=== PATIENT | male | born 1955 | race Caucasian/White ===

== ENCOUNTER 2019-07-31 09:46 | Emergency (ER) | payer OTHER ==
--- NOTE | 2019-07-31 10:18 | ERPHSYRPT ---
- History of Present Illness Time Seen by Provider: 07/31/19 10:15 Patient Subjective Stated Complaint: PT REPORTS VOMITING FOR 3 DAYS, UNABLE TO EAT OR DRINK. DENIEIS DIARRHEA OR BLOODY EMESIS OR STOOL. Triage Nursing Assessment: ABLET TO AMBULATE TO ROOM. ALERT AND ORIENTED. PT HOLDING CONTAINER FOR VOMIT, DRY HEIVING AT TIMES. REDDENED DRY RASH SCATTERED GENERALIZED ON BODY, PT STATES CHRONIC D/T NERVES. PT TEARFUL, STATES QUIT TAKING ANTI-DEPRESSANT A FEW MONTHS AGO. PT LIVES WITH SON, AND THEY DO NOT AGREE. PT REPORTS PAIN IN LOWER RIGHT QUAD, TENDER TO TOUCH. PAIN 8/10, CONSTANT. Physician History: 63 y/o white male with h/o gerdz and niddm, presents with constipation for 4 days, as well as vomiting and rlq abd pain both for 3 days. pt has had an appendectomy in the past Timing/Duration: day(s) (3 to 4 ) Activities at Onset: none Quality: sharpness, stabbing Abdominal Pain Onset Location: RLQ Pain Radiation: no radiation Severity of Pain-Max: moderate Severity of Pain-Current: moderate Modifying Factors: Improves With: vomiting Associated Symptoms: nausea, vomiting Previous symptoms: no prior history Allergies/Adverse Reactions: iodine [Iodine] Allergy (Verified 05/27/12 06:27) Sulfa (Sulfonamide Antibiotics) [Sulfa(Sulfonamide Antibiotics)] Allergy ( Verified 05/27/12 06:27) Home Medications: Metformin HCl 1000 mg [Glucophage 1000 MG] 1,000 mg PO DAILY 03/22/16 [History] Omeprazole 40 mg PO DAILY 03/22/16 [History] Empagliflozin [Jardiance] 10 mg PO DAILY 07/31/19 [History] Hx Tetanus, Diphtheria Vaccination/Date Given: No Hx Influenza Vaccination/Date Given: Yes (PT UNSURE OF DATES) Hx Pneumococcal Vaccination/Date Given: No - Review of Systems Constitutional: No Symptoms Eyes: No Symptoms Ears, Nose, & Throat: No Symptoms Respiratory: No Symptoms Cardiac: No Symptoms Abdominal/Gastrointestinal: Abdominal Pain, Nausea, Vomiting, Constipation Genitourinary Symptoms: No Symptoms Musculoskeletal: No Symptoms Skin: No Symptoms Neurological: No Symptoms Psychological: No Symptoms Endocrine: No Symptoms Hematologic/Lymphatic: No Symptoms Immunological/Allergic: No Symptoms All Other Systems: Reviewed and Negative - Past Medical History Pertinent Past Medical History: Yes Neurological History: No Pertinent History ENT History: No Pertinent History Cardiac History: No Pertinent History Respiratory History: No Pertinent History Endocrine Medical History: Diabetes Type II Musculoskeletal History: No Pertinent History GI Medical History: GERD History: No Pertinent History Psycho-Social History: Depression Male Reproductive Disorders: No Pertinent History Other Medical History: KIDNEY STONE - Past Surgical History Past Surgical History: Yes Neuro Surgical History: No Pertinent History Cardiac: No Pertinent History Respiratory: No Pertinent History Gastrointestinal: Appendectomy, Cholecystectomy, Hernia Repair Genitourinary: Other Musculoskeletal: No Pertinent History Other Surgical History: KIDNEY STONES [id number] - Social History Smoking Status: Former smoker How long have you smoked: 30 YEARS + Exposure to second hand smoke: Yes Drug Use: none Patient Lives Alone: No (WITH SON) - Nursing Vital Signs Nursing Vital Signs: Initial Vital Signs Temperature 99.4 F 07/31/19 09:57 Pulse Rate 91 H 07/31/19 09:57 Respiratory Rate 20 07/31/19 09:57 Blood Pressure 138/92 07/31/19 09:57 O2 Sat by Pulse Oximetry 100 07/31/19 09:57 Pain Scale Pain Intensity 9 - Physical Exam General Appearance: mild distress, alert, anxiety Eye Exam: PERRL/EOMI, eyes nml inspection Ears, Nose, Throat Exam: normal ENT inspection, moist mucous membranes Neck Exam: normal inspection, non-tender, supple, full range of motion Respiratory Exam: normal breath sounds, lungs clear, airway intact, No chest tenderness, No respiratory distress Cardiovascular Exam: regular rate/rhythm, normal heart sounds, normal peripheral pulses Gastrointestinal/Abdomen Exam: soft, normal bowel sounds, tenderness (mild right lower quad), guarding, No rebound Rectal Exam: not done Back Exam: normal inspection, normal range of motion, CVA tenderness (right) Extremity Exam: normal inspection, normal range of motion, pelvis stable Neurologic Exam: alert, oriented x 3, cooperative, elevator supervisor II-XII nml as tested Skin Exam: normal color, warm, dry Lymphatic Exam: No adenopathy SpO2 Interpretation: normal SpO2: 100 O2 Delivery: Room Air - Course Nursing assessment & vital signs reviewed: Yes Ordered Tests: Active Orders 24 hr Category Date Time Status IV Insertion STAT Care 07/31/19 10:27 Active ABDOMEN AND PELVIS W/0 CONTRAS [CT] Stat Exams 07/31/19 10:27 Completed AMYLASE Stat Lab 07/31/19 10:35 Completed CBC W DIFF Stat Lab 07/31/19 10:35 Completed CMP Stat Lab 07/31/19 10:35 Completed LIPASE Stat Lab 07/31/19 10:35 Completed Lactic Acid Stat Lab 07/31/19 10:27 Completed UA W/RFX UR CULTURE Stat Lab 07/31/19 12:35 Ordered Medication Summary Generic Name Dose Route Start Last Admin Trade Name Freq PRN Reason Stop Dose Admin Ceftriaxone Sodium/Dextrose 1 g in 50 mls @ 100 mls/hr 07/31/19 12:51 Rocephin 1 Gm-D5w 50 Ml Bag IV 07/31/19 13:20 STAT STA Discontinued Medications Generic Name Dose Route Start Last Admin Trade Name Freq PRN Reason Stop Dose Admin Hydromorphone HCl 1 mg 07/31/19 10:27 07/31/19 10:38 Hydromorphone 1 Mg/Ml Ampule IV 07/31/19 10:28 1 mg STAT ONE Administration Hydromorphone HCl Confirm 07/31/19 10:34 Hydromorphone 1 Mg/Ml Ampule Administered 07/31/19 10:35 Dose 1 mg .ROUTE .STK-MED ONE Hydromorphone HCl 1 mg 07/31/19 12:54 Hydromorphone 1 Mg/Ml Ampule IV 07/31/19 12:55 STAT ONE Sodium Chloride 1,000 mls @ 999 mls/hr 07/31/19 10:27 07/31/19 11:48 Sodium Chloride 0.9% 1000 Ml IV 07/31/19 11:27 Infused .Q1H1M STA Infusion Sodium Chloride Confirm 07/31/19 10:34 Sodium Chloride 0.9% 1000 Ml Administered 07/31/19 10:35 Dose 1,000 mls @ ud .ROUTE .STK-MED ONE Ketorolac Tromethamine 30 mg 07/31/19 11:52 07/31/19 11:55 Toradol 30 Mg Injection IV 07/31/19 11:53 30 mg STAT ONE Administration Ketorolac Tromethamine Confirm 07/31/19 11:54 Toradol 30 Mg Injection Administered 07/31/19 11:55 Dose 30 mg .ROUTE .STK-MED ONE Ondansetron HCl 4 mg 07/31/19 10:27 07/31/19 10:38 Zofran 4 Mg/2 Ml Vial IV 07/31/19 10:28 4 mg STAT ONE Administration Ondansetron HCl Confirm 07/31/19 10:33 Zofran 4 Mg/2 Ml Vial Administered 07/31/19 10:34 Dose 4 mg .ROUTE .STK-MED ONE Lab/Rad Data: Laboratory Result Diagrams 07/31/19 10:35 07/31/19 10:35 Laboratory Results 07/31/19 07/31/19 07/31/19 Range/Units 10:35 10:35 10:27 WBC 13.2 H (4.0-10.5) K/mm3 RBC 5.22 (4.1-5.6) M/mm3 Hgb 17.0 (12.5-18.0) gm/dl Hct 49.7 (42-50) % MCV 95.2 (78-100) fl MCH 32.6 H (26-32) pg MCHC 34.2 (32-36) g/dl RDW 12.7 (11.5-14.0) % Plt Count 279 (150-450) K/mm3 MPV 9.6 H (6-9.5) fl Gran % 87.0 H (36.0-66.0) % Eos # (Auto) 0.01 (0-0.5) Absolute Lymphs (auto) 0.94 L (1.0-4.6) Absolute Monos (auto) 0.74 (0.0-1.3) Lymphocytes % 7.1 L (24.0-44.0) % Monocytes % 5.6 (0.0-12.0) % Eosinophils % 0.1 (0.00-5.0) % Basophils % 0.2 (0.0-0.4) % Absolute Granulocytes 11.45 H (1.4-6.9) Basophils # 0.02 (0-0.4) Sodium 140 (137-145) mmol/L Potassium 4.7 (3.5-5.1) mmol/L Chloride 101 (98-107) mmol/L Carbon Dioxide 22 (22-30) mmol/L Anion Gap 21.5 H (5-15) MEQ/L BUN 19 (9-20) mg/dL Creatinine 1.32 H (0.66-1.25) mg/dL Estimated GFR 58.6 ML/MIN Glucose 278 H (74-106) mg/dL Lactic Acid 1.7 (0.4-2.0) Calcium 10.6 H (8.4-10.2) mg/dL Total Bilirubin 1.20 (0.2-1.3) mg/dL AST 27 (17-59) U/L ALT 37 (0-50) U/L Alkaline Phosphatase 114 (38-126) U/L Serum Total Protein 8.5 H (6.3-8.2) g/dL Albumin 5.0 (3.5-5.0) g/dL Amylase 70 (30-110) U/L Lipase 41 (23-300) U/L - Progress Progress: improved Progress Note: 07/31/19 11:50 ct abd/pelvis-8mm right mid ureteral calculus. obstructive uropathy with mod hydronephrosis and perinephric stranding. 07/31/19 12:[address] rizo, urologist, at [facility] not available. [facility] does not have any urologist linux consultant or available. will contact [facility] 07/31/19 13:[address] hackett, [facility]. i reviewed pt hx, condition, lab and xray results with him. he accepts pt for transfer. Counseled pt/family regarding: lab results, diagnosis, need for follow-up, rad results - Departure Departure Disposition: Transfer Clinical Impression: Ureterolithiasis, Obstructive uropathy Condition: Stable Critical Care Time: No Referrals: JUSTIN FARMER MD [Primary Care Provider] -
[2019-07-31] MEDS ORDERED: Hydromorphone 1 mg/ml Ampule IV ONE ×2 (10:27→12:54)
[2019-07-31] MEDS ORDERED: Zofran 4 MG/2 ML VIAL IV ONE (10:27)
[2019-07-31] MEDS ORDERED: Sodium Chloride 0.9% 1000 ML 1,000 ML IV STA (10:27)
[2019-07-31] MEDS ORDERED: Zofran 4 MG/2 ML VIAL ONE (10:33)
[2019-07-31] MEDS ORDERED: Hydromorphone 1 mg/ml Ampule ONE ×2 (10:34→13:36)
[2019-07-31] MEDS ORDERED: Sodium Chloride 0.9% 1000 ML 1,000 ML ONE (10:34)
[2019-07-31 10:47] LABS: BASOPHIL % 0.2 % (0.0-0.4); Basophil (Absolute #) 0.02 (0-0.4); Eosinophil % 0.1 % (0.00-5.0); Eosinophil (Absolute #) 0.01 (0-0.5); Granulocyte Absolute (ANC) 11.45 (1.4-6.9); Hematocrit 49.7 % (42-50); Lymphocyte (Absolute #) 0.94 (1.0-4.6); Lymphocytes % 7.1 % (24.0-44.0); Mean Cell Volume 95.2 fl (78-100); Mean Corpuscular Hemoglobin 32.6 pg (26-32); Mean Corpuscular Hgb Concent. 34.2 g/dl (32-36); Mean Platelet Volume 9.6 fl (6-9.5); Monocyte (Absolute #) 0.74 (0.0-1.3); Monocytes % 5.6 % (0.0-12.0); Platelet Count 279 K/mm3 (150-450); Red Blood Count 5.22 M/mm3 (4.1-5.6); Red Cell Distribution Width 12.7 % (11.5-14.0); White Blood Count 13.2 K/mm3 (4.0-10.5)
[2019-07-31 11:18] LABS: ANION GAP 21.5 MEQ/L (5-15); BILIRUBIN,TOTAL 1.2 mg/dL (0.2-1.3); Calcium 10.6 mg/dL (8.4-10.2); Creatinine 1 1.32 mg/dL (0.66-1.25); Potassium 4.7 mmol/L (3.5-5.1); Total Protein 8.5 g/dL (6.3-8.2)
--- NOTE | 2019-07-31 11:31 | XRAY ---
Indication: Right lower quadrant pain. Multiple contiguous axial images obtained through the abdomen and pelvis without contrast as ordered. Comparison: CT renal stone study May 27, 2012. Lung bases remain clear. Heart is not enlarged. Stable small hiatal hernia. Noncontrasted stomach and bowel loops appear nonobstructed. There has been interval appendectomy. Increasing diffuse scattered colonic diverticulosis without diverticulitis. No free fluid/air. New 8 mm right mid ureteral calculus approximately L4 level. Proximal right ureter is distended and there is moderate hydronephrosis with minimal perinephric stranding consistent with obstructive uropathy. Additional new 1.1 cm right renal calculus. There is again a 1.3 cm right mid renal cortical cyst and 8 mm left mid renal exophytic cyst both with peripheral punctate calcification. Remaining liver, gallbladder, pancreas, spleen, adrenal glands, left kidney, left ureter, and bladder appear unremarkable for noncontrast exam. Increasing mild scattered aortoiliac calcifications without AAA. Osseous structures intact again with mild degenerative changes throughout the spine. Again bilateral fatty inguinal hernias. Impression: 1. Interval appendectomy. 2. New 8 mm right mid ureteral calculus producing obstructive uropathy as detailed. Also new 1.1 cm right renal calculus. 3. Again 1.3 cm right renal cyst and 8mm left renal cyst with peripheral calcifications. 4. Again scattered colonic diverticulosis, small hiatal hernia, and fatty bilateral inguinal hernias. CT DI 23.18
[2019-07-31] MEDS ORDERED: TORAdol 30 mg Injection IV ONE (11:52)
[2019-07-31] MEDS ORDERED: TORAdol 30 mg Injection ONE (11:54)
[2019-07-31 12:36] VITALS: PULSE 92
[2019-07-31] MEDS ORDERED: ROCEPHIN 1 Gm-D5w 50 ml Bag** 1 G/50 ML IVPB IV STA (12:51)
[2019-07-31] MEDS ORDERED: ROCEPHIN 1 Gm-D5w 50 ml Bag** 1 G/50 ML IVPB IV ONE (13:36)
[2019-07-31 13:55] VITALS: BP 107/66; O2SAT 16
[2019-07-31 14:11] LABS: Appearance CLOUDY (CLEAR); Bacteria FEW /HPF (NEGATIVE); Bilirubin NEGATIVE (NEGATIVE); Blood LARGE Ery/ul (0-5); Glucose >=500 mg/dL (NEGATIVE); Ketones SMALL (NEGATIVE); Leukocyte Esterase NEGATIVE (NEGATIVE); Mucus MANY /HPF (NEGATIVE); Nitrite NEGATIVE (NEGATIVE); Protein,Urine Dip 30 (Negative); Specific Gravity 1.028 (1.005-1.025); Urobilinogen NEGATIVE mg/dL (0-1); WBC 26-50 /HPF (0-5)
[2019-07-31 14:16] LABS: Budding Yeast Moderate /HPF (NEGATIVE); RBC >101 /HPF (0-2)
== END 2019-07-31 14:00 | disposition short-term general hospital (02) ==
LOC: ED 09:46
DX: N20.1 Calculus of ureter (principal); N13.9 Obstructive and reflux uropathy, unspecified
CPT/HCPCS: 36000; 36415; 74176; 80053; 81001; 82150; 83605; 83690; 85025; 87086; 96360; 96365; 96374; 96375; 96376; 99285; J0696; J1170; J1885; J2405

== ENCOUNTER 2022-04-08 15:26 | Emergency (ER) | payer OTHER ==
[2022-04-08 15:49] VITALS: BP 116/82; PULSE 94; O2SAT 99
--- NOTE | 2022-04-08 16:29 | ERPHSYRPT ---
- History of Present Illness Time Seen by Provider: 04/08/22 15:50 Source: patient Exam Limitations: no limitations Patient Subjective Stated Complaint: Pt was picking up trash and a dog bit him on his left upper back thigh Triage Nursing Assessment: Pt brought self to the ER, rates pain as 5/10, 3 puncture wounds to his upper left back thigh, no bleeding, vitals wnl, pt was picking up trash in [place] when the dog approached him from behind, denies any other injuries Physician History: Patient was collecting garbage along a route and was bitten by a dog on the right upper posterior thigh this occurred approximately 2 hours prior to arrival. The dog according to information we have been given has fully been vaccinated. He complains of pain. Timing/Duration: today Quality: painful Severity: moderate Location: extremities (Upper right posterior thigh) Possible Causes: other (Dog bite) Allergies/Adverse Reactions: iodine [Iodine] Allergy (Verified 04/08/22 15:49) Sulfa (Sulfonamide Antibiotics) [Sulfa(Sulfonamide Antibiotics)] Allergy (Verified 04/08/22 15:49) Home Medications: Metformin HCl 1000 mg [Glucophage 1000 MG] 1,000 mg PO DAILY 03/22/16 [History] Omeprazole 40 mg PO DAILY 03/22/16 [History] Citalopram Hydrobromide 20 mg* [ceLEXa 20 MG] 20 mg PO DAILY 04/08/22 [History] Hx Tetanus, Diphtheria Vaccination/Date Given: No Hx Influenza Vaccination/Date Given: Yes (PT UNSURE OF DATES) Hx Pneumococcal Vaccination/Date Given: No Travel Risk - International Travel Have you traveled outside of the country in past 3 weeks: No - Coronavirus Screening Are you exhibiting any of the following symptoms?: No Close contact with a COVID-19 positive Pt in past 14-21 Days: No - Vaccine Status Have you recieved a Covid-19 vaccination: No - Review of Systems Constitutional: No Fever, No Chills Eyes: No Symptoms Ears, Nose, & Throat: No Symptoms Respiratory: No Cough, No Dyspnea Cardiac: No Chest Pain, No Edema, No Syncope Abdominal/Gastrointestinal: No Abdominal Pain, No Nausea, No Vomiting, No Diarrhea Genitourinary Symptoms: No Dysuria Musculoskeletal: No Back Pain, No Neck Pain Skin: Other (5 puncture mcconnell posterior thigh no active bleeding), No Rash Neurological: No Dizziness, No Focal Weakness, No Sensory Changes Psychological: No Symptoms Endocrine: No Symptoms All Other Systems: Reviewed and Negative - Past Medical History Pertinent Past Medical History: Yes Neurological History: No Pertinent History ENT History: No Pertinent History Cardiac History: No Pertinent History Respiratory History: No Pertinent History Endocrine Medical History: Diabetes Type II Musculoskeletal History: No Pertinent History GI Medical History: GERD History: No Pertinent History Psycho-Social History: Depression Male Reproductive Disorders: No Pertinent History Other Medical History: KIDNEY STONE - Past Surgical History Past Surgical History: Yes Neuro Surgical History: No Pertinent History Cardiac: No Pertinent History Respiratory: No Pertinent History Gastrointestinal: Appendectomy, Cholecystectomy, Hernia Repair Genitourinary: Other Musculoskeletal: No Pertinent History Other Surgical History: KIDNEY STONES [id number] - Social History Smoking Status: Former smoker How long have you smoked: 30 YEARS + Exposure to second hand smoke: Yes Drug Use: none Patient Lives Alone: No (WITH SON) - Nursing Vital Signs Nursing Vital Signs: Initial Vital Signs Temperature 98.2 F 04/08/22 15:39 Pulse Rate 94 H 04/08/22 15:39 Blood Pressure 116/82 04/08/22 15:39 O2 Sat by Pulse Oximetry 99 04/08/22 15:39 Pain Scale Pain Intensity 5 - Physical Exam General Appearance: mild distress Eye Exam: PERRL/EOMI, eyes nml inspection Ears, Nose, Throat Exam: normal ENT inspection, pharynx normal, moist mucous membranes Neck Exam: normal inspection, non-tender, supple, full range of motion Back Exam: normal inspection, normal range of motion Extremity Exam: normal inspection, normal range of motion, other (There is 5 puncture mcconnell on the posterior upper right thigh consistent with a dog bite) Neurologic Exam: alert, oriented x 3, cooperative SpO2: 99 - Course Nursing assessment & vital signs reviewed: Yes - Progress Progress: unchanged - Departure Departure Disposition: Home Clinical Impression: Dog bite Condition: Stable Critical Care Time: No Referrals: JUSTIN FARMER MD [Primary Care Provider] - Follow up/PCP as directed Instructions: Animal Bites (DC) Prescriptions: Hydrocodone/Acetaminophen [Hydrocodone-Acetamin 5-325 mg] 1 tab PO Q6HPRN PRN 3 Days #12 tablet MDD 4 PRN Reason: Pain Amox Tr/Potass Clav. 875 mg [Augmentin 875-125 Tablet] 1 each PO BID 10 Days #20 tablet
[2022-04-08] MEDS ORDERED: Adacel Vial IM ONE ×2 (17:07→17:10)
== END 2022-04-08 17:22 | disposition home or self-care (01) ==
LOC: ED 15:26
DX: S70.372A Other superficial bite of left thigh, initial encounter (principal); W54.0XXA Bitten by dog, initial encounter; Y92.414 Local residential or business street as the place of occurrence of the external cause; Y99.0 Civilian activity done for income or pay; M79.652 Pain in left thigh; E11.9 Type 2 diabetes mellitus without complications; Z79.891 Long term (current) use of opiate analgesic; Z79.84 Long term (current) use of oral hypoglycemic drugs; Z79.899 Other long term (current) drug therapy
CPT/HCPCS: 90715; 99283